=== PATIENT | male | born 1970 | race Caucasian/White ===

== ENCOUNTER 2025-04-07 23:00 | Emergency (ER) | payer MEDICAID, SELFPAY ==
[2025-04-07 23:10] VITALS: BP 113/81; PULSE 90; RESP 18; TEMP 36.5; O2SAT 100
--- NOTE | 2025-04-08 00:07 | ED.GENADUL_ITS ---
Discharge Plan Disposition Patient Disposition: Home Condition: Good Discharge Details Clinical Impression: PTSD (post-traumatic stress disorder) Primary Care Provider: Juanito Pope ED Provider: Shana Sotomayor Home Meds and New Rx's Prescriptions: Continued donepezil [Aricept] 10 mg tablet 10 mg PO DAILY Qty: 90 3RF memantine 10 mg tablet 10 mg PO QPM Qty: 90 3RF aripiprazole [Abilify] 20 mg tablet 20 mg PO DAILY Qty: 90 3RF dextroamphetamine-amphetamine [Adderall] 30 mg tablet 30 mg PO BID MDD 60mg Qty: 56 0RF Discharge Instructions Instructions: Post-traumatic Stress Disorder (DC) Additional Instructions: Follow your safety plan. [facility] sent referrals; please make sure to establish outpatient care. Do not hesitate to return to the emergency department at any point if you feel unsafe, like you may harm yourself or someone else, if you are hallucinating, if your symptoms worsen, or if you have any other concerns. We are always here. HPI General Mode of arrival: ambulatory . Date/Time Provider Initiated Documentation: 04/07/25 23:21 . Limitations to Documentation: no limitations . Information obtained by: patient . HPI Narrative: 54yo M with hx PTSD, ADHD, early onset dementia, presenting for w orsening PTSD symptoms. Recently moved here and took about two months to establish care with a PCP; has been out of his medications in that period of time. 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 Feels like his PTSD has been worsening over the past several months. He has been nervous, mildly agitated, frequently keeping an eye on people around him with concern that they may have a gun or another weapon or might be wanting to hurt him. Recognizes that this is probably not the case, but also wonders if the people around him don't recognize the danger from others because 'they don't know what to look out for'. Denies any intent or plan to harm anyone else, does not have access to firearms. Does not have any outpatient mental health services set up here yet and would like to, is 'tired of feeling like this all time'. Has had psychiatric admissions for PTSD in the past however 'things were much worse then'. Does not feel like he needs inpa tient treatment now. Is otherwise in his usual state of health with no physical complaints. Related Data Home Medications ?Medication ?Instructions ?Recorded ?Confirmed aripiprazole 20 mg tablet (Abilify) 20 mg PO DAILY #90 tabs 04/06/25 04/07/25 dextroamphetamine-amphetamine 30 30 mg PO BID #56 tabs 04/06/25 04/07/25 mg tablet (Adderall) donepezil 10 mg tablet (Aricept) 10 mg PO DAILY #90 ta bs 04/06/25 04/07/25 memantine 10 mg tablet 10 mg PO QPM #90 tabs 04/07/25 Previous Rx's ?Medication ?Instructions ?Recorded aripiprazole 20 mg tablet (Abilify) 20 mg PO DAILY #90 tabs 04/06/25 dextroamphetamine-amphetamine 30 30 mg PO BID #56 tabs 04/06/25 mg tablet (Adderall) donepezil 10 mg tablet (Aricept) 10 mg PO DAILY #90 ta bs 04/06/25 memantine 10 mg tablet 10 mg PO QPM #90 tabs Allergies Allergy/AdvReac Type Severity Reaction Status Date / Time No Known Allergies Allergy Verified 04/07/25 23:09 General Stated Complaint: PsychEval UMM: 2 Review of Systems Narrative: see HPI Exam Narrative Exam Narrative: General: Alert, well appearing, well nourished, in no acute distress. Head: Normocephalic, atraumatic Neck: Trachea midline, ?Neck supple. Cardiac: ?RRR Resp: No respiratory distress. Speaking in full sentences. Abd: ?Non-distended Extremities: ?No deformities.? No peripheral edema. Neurologic: GCS 15. ? Moves all extremities freely against gravity Psych: Nervous, cooperative.? Well groomed.? Mood antsy, affect congruent.? Speech with normal volume, rate, rythym and tone. Linear and goal directed.?Mild paranoia, good insight and judgement. Denies SI/HI/AH/VH. ? Does not appear to be responding to internal stimuli. Course Vital Signs Vital signs: Vital Signs Pulse 90 04/07/25 23:10 Respiratory Rate 18 04/07/25 23:10 Blood Pressure 113/81 04/07/25 23:10 Pulse Oximetry 100 04/07/25 23:10 Pulse 90 04/07/25 23:10 Respiratory Rate 18 04/07/25 23:10 Blood Pressure 113/81 04/07/25 23:10 Pulse Oximetry 100 04/07/25 23:10 Pain Level 0 04/07/25 23:10 Medical Decision Making 54yo M with hx PTSD, ADHD, early onset dementia, presenting for worsening PTSD symptoms. Has been experiencing some paranoia and anxiety. Recently moved the area, only able to restart his usual medications yesterday, does not have outpatient mental health services set up and is hoping we can help with this. Will give low dose PO ativan for anxiety here in the ED (patient declines outpatient prescription for this; has been on benzodiazapenes in the past and does not want to take them regularly which is very reasonable). Vital signs reassuring on arrival. Medically cleared/SMART form filled out. No SI/HI/AH/VH, demonstrates good insight and judgment into his condition. No indication for involuntary treatment. [facility] evaluated patient; safety planned home with outpatient referrals sent. Patient feels comfortable with this plan. Discharged home; discharge instructions and return precautions were reviewed with patient who verbalized understanding. All questions were answered and he is in full agreement with the plan. Quality:SDOH Health Related Social Needs: Health related social needs risk of homeless material hardship house/econ circumstance education PFSH All Active Problems (Updated 04/08/25 @ 01:21 by Shana Sotomayor MD) ADHD (Acute) PTSD (post-traumatic stress disorder) (Acute) Early onset Alzheimer dementia (Acute) Surgical History (Updated 04/06/25 @ 09:08 by Juanito Pope NP) History of repair of ACL Family History (Updated 03/30/25 @ 10:06 by Ashwini Farias) Mother No problems noted. Father No problems noted. Social History (Updated 03/30/25 @ 10:05 by Ashwini Farias) Smoking/Tobacco Use Status: Never Smoking risk assessment performed?: Yes Alcohol Intake: never Substance use type: does not use Adopted: No Household members: none Housing: house Communication Needs: None Education Level: high school Do you need help understanding health information?: Rarely Sexually active: No Do you think of yourself as: straight/heterosexual Current gender identity: male What is your relationship status?: How often do you talk on the phone with friends or family?: never How often do you get together with friends or relatives?: decline to answer How often do you attend rastafari or roman catholic services?: decline to answer Do you belong to any clubs or organized social groups?: decline to answer Panel score (0-1 are the most socially isolated patients): 0 Duration: 45-60 minutes/day Nicolasa/Evangelical: Non methodist Agree to transfusion: Yes Seatbelt use: always Helmet use: Yes Drive intox or ride w/intox semi driver: No Working smoke detector in home: Yes Carbon monox detector in home: Yes Do you feel safe at home: Yes Victim of physical abuse: No Victim of emotional abuse: No Victim of sexual abuse: No
[2025-04-08] MEDS: LORazepam 1 MG TAB PO (00:20)
--- NOTE | 2025-04-08 01:25 | PDOC.MHCN ---
Date of service: 04/08/25 Time of Service: 12:30 PHQ-9 Over the last 2 weeks, how often have you been bothered by any of the following problems? 1. Little interest or pleasure in doing things: not at all 2. Feeling down, depressed, or hopeless: several days 3. Trouble falling or staying asleep, or sleeping too much: not at all 4. Feeling tired or having little energy: not at all 5. Poor appetite or overeating: more than half the days 6. Feeling bad about yourself - or that you are a failure or have let yourself and your family down: nearly every day 7. Trouble concentrating on things, such as reading the newspaper or watching television: more than half the days 8. Moving or speaking so slowly that other people could have noticed? - Or the opposite - being so fidgety or restless that you have been moving around a lot more than usual: several days 9. Thoughts that you would be better off or of hurting yourself in some way: not at all Total score: 9 If you checked off any problems, how difficult have these problems made it for you to do your work, take care of things at home, or get along with other people?: not difficult at all PHQ-9 Results: Negative Source: Developed by Drs. Casey Wilkinson, Kusum Delaney, Johnathan Santa and colleagues, with an educational palomo from [employer]. Suicide Severity Rate CSSRS Have you wished you were or wished you could go to sleep and not wake up?: No Have you actually had any thoughts of killing yourself?: No CSSRS2 Have you been thinking about how you might do this?: No Have you had these thoughts and had some intention of acting on them?: No Have you started to work out or worked out the details of how to kill yourself? Do you intend to carry out this plan?: No CSSRS3 Have you ever done anything, started to do anything or prepared to do anything to end your life?: No CSSRS4 Was this within the past three months?: No Screening Score Total Score: 0 Screening: Negative Mental Health Emergency Note Release [facility] release signed:: No Reason for Visit PTSD Symptoms In the last 2 weeks has the pt presented for ES prior to today?: Unknown Client Information Well Housed: Yes Non Suicidal Self Injury Current: No History: No Safety Risk/Harm to Self or Others Current Ideation to Harm Self or Others: No Risk: Does risk to harm exist?: No Risk: N/A Duty to warn indicated: No Asssessment/Mental Status Appearance: Unremarkable Attitude: Cooperative Behavior: Unremarkable Speech: Normal Affect: Normal Mood: Stressed, Depressed and Anxious Thought process: Unremarkable Hallucinations: No and No evidence Delusions: No and No evidence Attention: Unremarkable Perception: Not impaired Orientation: Fully orientated Memory: Intact Insight: Poor Judgement: Poor Neurovegetative Symptoms Sleep: Decrease Appetitie: Increase Interests: No change Energy: No change Libido: Not applicable Substance Use: Do you use nicotine?: No Have you used substances in the last 7 days?: No Additional Issues: Assaultive/Threatening Behavior: No Medical Concerns: No Client engaged in active self harm w/weapon: No Threatening to run away: No Child reported abuse/neglect: No Voluntarily presenting for services: Yes Domestic violence is a concern: No Extreme Psychosis or extreme behavior is present: No Impression The client is a 54-year-old single male who presented with symptoms consistent with PTSD, specifically linked to combat. He carries diagnoses of PTSD, Early Onset Alzheimer's, and ADHD. The client is currently connected with a primary care physician, Juanito with [facility], and a therapist, Dr. Gamino. However, he expressed a desire for [facility] referrals for therapy, psychiatry, and potentially case management. During the session, the client denied any suicidal ideation (SI), homicidal ideation (HI), or non-suicidal self-injury (NSSI), stating there is no plan or intent with a distress level rated at 0 out of 10, and he has no significant previous history in this regard. The client does not engage in substance use and is compliant with his prescribed medications, which include Aricept, Namenda, Abilify, Adderall, and Aripiprazole. Notably, he last received inpatient mental health treatment in 2022 at [facility] in [place], [place], where he was under care for one year. He reported a substantial history of inpatient mental health treatment, totaling around 100 admissions since 1998. The client identifies as a retired, disabled and reports the absence of a natural support system, expressing interest in finding a private caregiver. A safety plan has been established so that the client can be discharged home. He has recevied information about [facility]. OP referrals through [facility] have been made. Resources Reosurces reviewed and given:: 988 and [facility] Plan/Disposition Recommended Disposition: [facility] Services, Therapy, Med management, Community resources and Other. Plan: Safety planned home. Person reported agreement to plan: Yes Reports/communication Outcome discussed with: ED/Personnel
[2025-04-08 01:31] VITALS: BP 115/90; PULSE 89; RESP 19; TEMP 36.6; O2SAT 98
== END 2025-04-08 01:47 | disposition home or self-care (01) ==
PROVIDERS: Emergency Provider Student in an Organized Health Care Education/Training Program; PCP Nurse Practitioner Family
DX: F43.10 Post-traumatic stress disorder, unspecified (principal); G30.0 Alzheimer's disease with early onset; F02.80 Dementia in other diseases classified elsewhere, unspecified severity, without behavioral disturbance, psychotic disturbance, mood disturbance, and anxiety; Z53.29 Procedure and treatment not carried out because of patient's decision for other reasons
CPT/HCPCS: 99283

== ENCOUNTER 2025-04-08 22:22 | Emergency (ER) | payer MEDICAID, SELFPAY ==
[2025-04-08 22:23] VITALS: BP 154/97; PULSE 117; RESP 20; TEMP 37; O2SAT 97
[2025-04-08 22:31] VITALS: RESP 20
[2025-04-08] MEDS: hydrOXYzine HCL 25 MG TAB PO (22:34)
--- NOTE | 2025-04-08 23:42 | W.ED.GENAD ---
Discharge Plan Discharge Details Chief Complaint: Anxiety Primary Care Provider: Juanito Pope ED Provider: Shana Sotomayor Home Meds and New Rx's Prescriptions: No Action donepezil [Aricept] 10 mg tablet 10 mg PO DAILY Qty: 90 3RF memantine 10 mg tablet 10 mg PO QPM Qty: 90 3RF aripiprazole [Abilify] 20 mg tablet 20 mg PO DAILY Qty: 90 3RF dextroamphetamine-amphetamine [Adderall] 30 mg tablet 30 mg PO BID MDD 60mg Qty: 56 0RF HPI General Mode of arrival: ambulatory. Date/Time Provider Initiated Documentation: 04/08/25 22:24. Limitations to Documentation: no limitations. Information obtained by: patient. HPI Narrative: 54yo M with hx PTSD, ADHD, early onset dementia, seen in this ED yesterday for worsening PTSD symptoms presenting again this evening for the same. See yesterday's note for details, in brief he recently moved here and there was a delay in establishing PCP care and he was out of his medications for two months just starting again within the past few days, and has not yet established care with outpatient mental health resources. Was evaluated by [facility] yesterday and safety-planned home with referrals sent. Presents today because he began to feel more anxious and 'amped up' this evening when trying to get to sleep. Denies SI/HI/AH/VH. Does have frequent thoughts about how the people around him may have weapons on them and want to hurt him though he recognizes that he 'might not be right'. Denies any intent or plan to harm anyone else, does not have access to firearms. Is otherwise in his usual state of health with no physical complaints. Related Data Home Medications ?Medication ?Instructions ?Recorded ?Confirmed aripiprazole 20 mg tablet (Abilify) 20 mg PO DAILY #90 tabs 04/06/25 04/08/25 dextroamphetamine-amphetamine 30 30 mg PO BID #56 tabs 04/06/25 04/08/25 mg tablet (Adderall) donepezil 10 mg tablet (Aricept) 10 mg PO DAILY #90 tabs 04/06/25 04/08/25 memantine 10 mg tablet 10 mg PO QPM #90 tabs 04/06/25 04/08/25 Previous Rx's ?Medication ?Instructions ?Recorded aripiprazole 20 mg tablet (Abilify) 20 mg PO DAILY #90 tabs 04/06/25 dextroamphetamine-amphetamine 30 30 mg PO BID #56 tabs 04/06/25 mg tablet (Adderall) donepezil 10 mg tablet (Aricept) 10 mg PO DAILY #90 tabs 04/06/25 memantine 10 mg tablet 10 mg PO QPM #90 tabs 04/06/25 Allergies Allergy/AdvReac Type Severity Reaction Status Date / Time No Known Allergies Allergy Verified 04/08/25 22:29 General Stated Complaint: Anxiety UMM: 4 Review of Systems Narrative: see HPI Exam Narrative Exam Narrative: General: Alert, well appearing, well nourished, in no acute distress. Head: Normocephalic, atraumatic Neck: Trachea midline, ?Neck supple. Cardiac: ?RRR Resp: No respiratory distress. Speaking in full sentences. Abd: ?Non-distended Extremities: ?No deformities.? No peripheral edema. Neurologic: GCS 15. ? Moves all extremities freely against gravity Psych: Calm, cooperative.? Well groomed.? Mood not great, affect congruent.? Speech with normal volume, rate, rythym and tone. Linear and goal directed.?Mild paranoia, good insight and judgment. Denies SI/HI/AH/VH. ? Does not appear to be responding to internal stimuli. Course Vital Signs Vital signs: Vital Signs Temperature 37.0 C 04/08/25 22:23 Pulse 117 H 04/08/25 22:23 Respiratory Rate 20 04/08/25 22:23 Blood Pressure 154/97 H 04/08/25 22:23 Pulse Oximetry 97 04/08/25 22:23 Temperature 37.0 C 04/08/25 22:23 Temperature Source Temporal Artery Scan 04/08/25 22:23 Pulse 117 H 04/08/25 22:23 Respiratory Rate 20 04/08/25 22:31 Respiratory Effort Normal, Non-Labored 04/08/25 22:31 Respiratory Depth Normal 04/08/25 22:31 Respiratory Pattern Normal 04/08/25 22:31 Blood Pressure 154/97 H 04/08/25 22:23 Blood Pressure Position Sitting 04/08/25 22:23 Pulse Oximetry 97 04/08/25 22:23 Oxygen Delivery Method Room Air 04/08/25 22:23 Oxygen Flow Rate 0 04/08/25 22:23 Pain Level 0 04/08/25 22:23 Medical Decision Making 54yo M with hx PTSD, ADHD, early onset dementia, seen in this ED yesterday for worsening PTSD symptoms presenting again this evening for the same. Presents today because he began to feel more anxious and 'amped up' this evening when trying to get to sleep. Denies SI/HI/AH/VH. Slightly tachycardiac on arrival, vital signs reassuring. Medically cleared/SMART tool filled out. Some paranoia, good insight and judgment and no access to firearms. Offerred ativan for anxiety, pt would prefer hydroxyzine and so this was ordered. [facility] evaluated patient; recommended voluntary placement and patient is agreeable (would prefer care bed). Repeat vital signs reassuring. Placed on ED observation status and home meds ordered. Will be signed out to oncoming physican in the morning, plan as above. Quality:SDOH Health Related Social Needs: Health related social needs risk of homeless material hardship house/econ circumstance education PFSH All Active Problems (Updated 04/08/25 @ 01:21 by Shana Sotomayor MD) ADHD (Acute) PTSD (post-traumatic stress disorder) (Acute) Early onset Alzheimer dementia (Acute) Surgical History (Updated 04/06/25 @ 09:08 by Juanito Pope NP) History of repair of ACL Family History (Updated 03/30/25 @ 10:06 by Ashwini Farias) Mother No problems noted. Father No problems noted. Social History (Updated 03/30/25 @ 10:05 by Ashwini Farias) Smoking/Tobacco Use Status: Never Smoking risk assessment performed?: Yes Alcohol Intake: never Substance use type: does not use Adopted: No Household members: none Housing: other Communication Needs: None Education Level: high school Do you need help understanding health information?: Rarely Sexually active: No Do you think of yourself as: straight/heterosexual Current gender identity: male What is your relationship status?: How often do you talk on the phone with friends or family?: never How often do you get together with friends or relatives?: decline to answer How often do you attend adventist or jainism services?: decline to answer Do you belong to any clubs or organized social groups?: decline to answer Panel score (0-1 are the most socially isolated patients): 0 Duration: 45-60 minutes/day Nicolasa/Temple: Non church Agree to transfusion: Yes Seatbelt use: always Helmet use: Yes Drive intox or ride w/intox delivery driver/supervisor: No Working smoke detector in home: Yes Carbon monox detector in home: Yes Do you feel safe at home: Yes Do you feel safe in your relationship?: Yes Victim of physical abuse: No Victim of emotional abuse: No Victim of sexual abuse: No
--- NOTE | 2025-04-09 03:52 | W.EDPROG ---
Date of service: 04/09/25 Time of Service: 03:52 Medical Decision Making Patient subsequently requesting leave. States he just found out his uncle and needs to go be with family. Denies SI/HI/AH/VH, calm, acting appropriately, does not appear to be responding to internal stimuli. I recommended that he stay the night and await [facility] re-eval in the morning and referrals; he refused. He demonstrates decision making capacity and I have no indication that he is at imminent risk of harm to himself or others and so there is no indication for involuntary psychiatirac commitment. Left AMA. [facility] updated. Quality:SDOH Health Related Social Needs: Health related social needs risk of homeless material hardship house/econ circumstance education Discharge Plan Disposition Patient Disposition: Against Medical Advice Condition: Stable Discharge Details Clinical Impression: PTSD (post-traumatic stress disorder) Primary Care Provider: Juanito Pope ED Provider: Shana Sotomayor Home Meds and New Rx's Prescriptions: No Action donepezil [Aricept] 10 mg tablet 10 mg PO DAILY Qty: 90 3RF memantine 10 mg tablet 10 mg PO QPM Qty: 90 3RF aripiprazole [Abilify] 20 mg tablet 20 mg PO DAILY Qty: 90 3RF dextroamphetamine-amphetamine [Adderall] 30 mg tablet 30 mg PO BID MDD 60mg Qty: 56 0RF Discharge Instructions Instructions: Post-traumatic Stress Disorder (DC) Additional Instructions: We would like you to stay in the ED but you haven chosen to leave against medical advice. Please return to the emergency department if you change your mind, or if your condition worsens. Return to the emergency department if you develop new or worsening symptoms including thoughts of harming yourself or others, hallucinations, or if you feel unsafe. Continue to take all of your home medications. Call your primary care doctor in the morning to schedule an appointment to be seen as soon as possible to followup on your visit here, no later than 48 hours from now.
--- NOTE | 2025-04-09 07:19 | NUR.NOTE ---
Accessed chart to print face sheet to fax to [facility] per their request Nursing Note:
== END 2025-04-09 04:10 | disposition left against medical advice (07) ==
PROVIDERS: Emergency Provider Student in an Organized Health Care Education/Training Program; PCP Nurse Practitioner Family
DX: F41.9 Anxiety disorder, unspecified (principal); F43.10 Post-traumatic stress disorder, unspecified
CPT/HCPCS: 99284; 99285; 00123; G0378

== ENCOUNTER 2025-04-09 21:02 | Emergency (ER) | payer OTHER, MEDICAID, SELFPAY | END 2025-04-09 21:47 | disposition left against medical advice (07) | PROVIDERS: PCP Nurse Practitioner Family | DX: Z53.21 Procedure and treatment not carried out due to patient leaving prior to being seen by health care provider (principal) | CPT/HCPCS: 99024 ==

== ENCOUNTER 2025-04-10 18:07 | Emergency (ER) | payer MEDICAID, SELFPAY ==
[2025-04-10 18:32] VITALS: BP 118/77; PULSE 106; RESP 18; TEMP 36.8; O2SAT 95
--- NOTE | 2025-04-10 19:24 | ED.GENADUL_ITS ---
Discharge Plan Discharge Details Chief Complaint: PsychEval Clinical Impression: Paranoid Primary Care Provider: Juanito Pope ED Provider: Gorge Schuler Home Meds and New Rx's Prescriptions: No Action donepezil [Aricept] 10 mg tablet 10 mg PO DAILY Qty: 90 3RF memantine 10 mg tablet 10 mg PO QPM Qty: 90 3RF aripiprazole [Abilify] 20 mg tablet 20 mg PO DAILY Qty: 90 3RF dextroamphetamine-amphetamine [Adderall] 30 mg tablet 30 mg PO BID MDD 60mg Qty: 56 0RF hydroxyzine HCl .ROUTE HPI General Mode of arrival: ambulatory . Date/Time Provider Initiated Documentation: 04/10/25 18:24 . Limitations to Documentation: no limitations . Information obtained by: patient . History of Present Illness 54 year old M presents to the emergency department with the chief complaint of erratic behavior, Patient started experiencing this week(s) (1) and it has been intermittent. No relieving factors improve symptom(s), No exacerbating factors reported . Patient notes denies chest pain, fever/chills and shortness of breath. Patient did receive the following treatments prior to arrival, none Related Data Home Medications ?Medication ?Instructions ?Recorded ?Confirmed aripiprazole 20 mg tablet (Abilify) 20 mg PO DAILY #90 tabs 04/06/25 04/10/25 dextroamphetamine-amphetamine 30 30 mg PO BID #56 tabs 04/06/25 04/10/25 mg tablet (Adderall) donepezil 10 mg tablet (Aricept) 10 mg PO DAILY #90 ta bs 04/06/25 04/10/25 memantine 10 mg tablet 10 mg PO QPM #90 tabs 04/10/25 hydroxyzine HCl .ROUTE 04/10/25 Previous Rx's ?Medication ?Instructions ?Recorded aripiprazole 20 mg tablet (Abilify) 20 mg PO DAILY #90 tabs 04/06/25 dextroamphetamine-amphetamine 30 30 mg PO BID #56 tabs 04/06/25 mg tablet (Adderall) donepezil 10 mg tablet (Aricept) 10 mg PO DAILY #90 ta bs 04/06/25 memantine 10 mg tablet 10 mg PO QPM #90 tabs Allergies Allergy/AdvReac Type Severity Reaction Status Date / Time No Known Allergies Allergy Verified 04/10/25 18:36 General Stated Complaint: PsychEval UMM: 2 Review of Systems All systems reviewed & are unremarkable except as noted in HPI and below Constitutional Constitutional: Denies chills, Denies fever(s) and Denies weakness Cardiovascular Cardiovascular: Denies chest pain and Denies dyspnea Respiratory Respiratory: Denies cough and Denies dyspnea Gastrointestinal Gastrointestinal: Denies abdominal pain, Denies nausea and Denies vomiting Neurologic Neurologic: Denies weakness Psychiatric Psychiatric: Reports anxiety and Reports mood swings Exam Const General: no acute distress Orientation: alert HENMT Head: normal to inspection Ears: external ears normal General nose exam: external nose normal Mouth: moist mucous membranes Eyes General: appearance normal, both eyes and all related structures Neck Neck: normal visual inspection Resp Effort & Inspection: normal respiratory effort and able to speak in complete sentences Cardio Rate: regular rate Skin General skin exam: no rashes or lesions noted Neuro General: patient alert and patient oriented x3 Extrem General: normal to inspection Psych Speech and Movement: speech and movement normal Attitude: cooperative Course Vital Signs Vital signs: Vital Signs Temperature 36.8 C 04/10/25 18:32 Pulse 106 H 04/10/25 18:32 Respiratory Rate 18 04/10/25 18:32 Blood Pressure 118/77 04/10/25 18:32 Pulse Oximetry 95 04/10/25 18:32 Temperature 36.8 C 04/10/25 18:32 Pulse 106 H 04/10/25 18:32 Respiratory Rate 18 04/10/25 18:32 Blood Pressure 118/77 04/10/25 18:32 Blood Pressure Position Sitting 04/10/25 18:32 Pulse Oximetry 95 04/10/25 18:32 Oxygen Delivery Method Room Air 04/10/25 18:32 Oxygen Flow Rate 0 04/10/25 18:32 Pain Level 0 04/10/25 18:32 Medical Decision Making 54-year-old male with a history of ADHD and PTSD who recently moved to this area comes in with same today PD and a mental health warrant. Apparently is been acting erratic in the community or was written for him to have a mental health evaluation. Patient is currently calm and cooperative and denies any SI or HI. He says he has [facility] of [facility] care [facility]. Denies any drug or alcohol use. He has a normal gait, moving all extremities well with good strength. He has been seen here few times already in the ER. Will have mental health evaluate him. More information gathered from crisis screener. Apparently he had a PE submitted earlier by the crisis screener. He is left this ER after stating he was to stay voluntarily and would then leave a few hours later. He apparently has been acting paranoid in the community and thinks that everyone in the community is carrying a gun and is a threat to him. He apparently made statements to crisis screener stating he will do what ever he needs to to protect himself. Given this new information I have also fill out the paperwork. Patient pending second CERT Differential Diagnosis Differential Diagnosis: PTSD, ADHD Quality:SDOH Health Related Social Needs: Health related social needs risk of homeless material hardship house/econ circumstance education PFSH All Active Problems (Updated 04/10/25 @ 22:15 by Gorge Schuler MD) Paranoid (Acute) ADHD (Acute) PTSD (post-traumatic stress disorder) (Acute) Early onset Alzheimer dementia (Acute) Surgical History (Updated 04/06/25 @ 09:08 by Juanito Pope NP) History of repair of ACL Family History (Updated 03/30/25 @ 10:06 by Ashwini Farias) Mother No problems noted. Father No problems noted. Social History (Updated 03/30/25 @ 10:05 by Ashwini Farias) Smoking/Tobacco Use Status: Never Smoking risk assessment performed?: Yes Alcohol Intake: never Substance use type: does not use Adopted: No Household members: none Housing: other Communication Needs: None Education Level: high school Do you need help understanding health information?: Rarely Sexually active: No Do you think of yourself as: straight/heterosexual Current gender identity: male What is your relationship status?: How often do you talk on the phone with friends or family?: never How often do you get together with friends or relatives?: decline to answer How often do you attend islam or evangelical services?: decline to answer Do you belong to any clubs or organized social groups?: decline to answer Panel score (0-1 are the most socially isolated patients): 0 Duration: 45-60 minutes/day Nicolasa/Protestant: Non samaritan Agree to transfusion: Yes Seatbelt use: always Helmet use: Yes Drive intox or ride w/intox otr refrigerated cdl truck driver: No Working smoke detector in home: Yes Carbon monox detector in home: Yes Do you feel safe at home: Yes Do you feel safe in your relationship?: Yes Victim of physical abuse: No Victim of emotional abuse: No Victim of sexual abuse: No
[2025-04-10 19:50] LABS: Abs Immature Grans 0.03 10^3/uL (0.0-0.06); HCT 49.5 % (40.0-50.0); HGB 16.6 g/dL (13.5-17.5); Immature Grans % 0.3 %; MCH 27.9 pg (27.0-33.0); MCHC 33.5 % (32.0-36.0); MCV 83 fL (80-95); MPV 10.6 fL (8.0-11.0); Platelet Count 363 10^3/uL (130-400); RBC 5.95 10^6/uL (4.36-5.78); RDW 13.2 % (11.8-14.1); RDW-SD 39.8 fL; WBC 10.89 10^3/uL (4.4-10.8)
[2025-04-10 20:22] LABS: ALT 28 U/L (16-63); AST 28 U/L (15-37); Albumin 4.7 g/dL (3.4-5.0); Alkaline Phosphatase 117 U/L (46-116); Anion Gap 9.5 mmol/L (3-11); BUN 24 mg/dL (7-18); Bilirubin, Total 0.7 mg/dL (0.2-1.0); CO2 28.5 mmol/L (21.0-32.0); Calcium 9.8 mg/dL (8.5-10.1); Chloride 102 mmol/L (98-107); Estimated GFR 90.56 (mL/min/1.73m2); Glucose 99 mg/dL (74-106); Potassium 4.0 mmol/L (3.5-5.1); Sodium 140 mmol/L (136-145); TSH (W/Ref FT4) 1.04 uIU/mL (0.36-3.74); Total Protein 8.7 g/dL (6.4-8.2)
[2025-04-10] MEDS: Memantine 5 MG TAB 10 MG PO (23:09)
[2025-04-11] MEDS: ARIPiprazole 5 MG TAB 20 MG PO (08:22)
[2025-04-11] MEDS: Donepezil 5 MG TAB 10 MG PO (08:22)
--- NOTE | 2025-04-11 08:42 | ED.PSYCHBOAR ---
Date of service: 04/11/25 Time of Service: 08:42 Psychiatric Border Handoff Update Brief Story: Patient currently being held involuntarily. Second CERT is pending. Patient has been seen multiple times this week in the emergency department. Currently pending placement. Status: EE Able to leave: no, this patient is an EE Behavioral Concerns: Patient is on an involuntary hold. He is fairly paranoid. Patient this morning became highly agitated because some man doctor told him that he was being discharged and the next thing he knew he woke up this morning and he still was not discharged. Patient has been made aware that he is currently on an involuntary hold, but has become fairly hostile and threatening towards staff. Code Status ordered: Yes Diet ordered: Yes Future to do Items: There is slightly Discharge Plan Discharge Details Chief Complaint: PsychEval Clinical Impression: Paranoid Primary Care Provider: Juanito Pope ED Provider: Loretta Martino Home Meds and New Rx's Prescriptions: No Action donepezil [Aricept] 10 mg tablet 10 mg PO DAILY Qty: 90 3RF memantine 10 mg tablet 10 mg PO QPM Qty: 90 3RF aripiprazole [Abilify] 20 mg tablet 20 mg PO DAILY Qty: 90 3RF dextroamphetamine-amphetamine [Adderall] 30 mg tablet 30 mg PO BID MDD 60mg Qty: 56 0RF hydroxyzine HCl .ROUTE
--- NOTE | 2025-04-11 08:45 | RES.FACE_ITS ---
Date of service: 04/11/25 Time of Service: 08:45 Restraint Face to Face Time of Face to Face Face to Face: Patient's Immediate Situation Requiring Restraints/Seclusion: Harm to Staff & Others Patient's Medical & Behavioral Condition: Patient became very agitated, hostile, threatening towards staff. Kept attempting to leave. Patient was reminded he is on involuntary status. IM medication for chemical restraint of ordered, but patient was able to be de- escalated verbally. Will continue to monitor closely
--- NOTE | 2025-04-11 09:31 | PDOC.MHCN_ITS ---
Date of service: 04/08/25 Time of Service: 23:30 PHQ-9 Over the last 2 weeks, how often have you been bothered by any of the following problems? 1. Little interest or pleasure in doing things: not at all 2. Feeling down, depressed, or hopeless: not at all 3. Trouble falling or staying asleep, or sleeping too much: not at all 4. Feeling tired or having little energy: not at all 5. Poor appetite or overeating: not at all 6. Feeling bad about yourself - or that you are a failure or have let yourself and your family down: not at all 7. Trouble concentrating on things, such as reading the newspaper or watching television: not at all 8. Moving or speaking so slowly that other people could have noticed? - Or the opposite - being so fidgety or restless that you have been moving around a lot more than usual: nearly every day 9. Thoughts that you would be better off or of hurting yourself in some way: not at all Total score: 3 If you checked off any problems, how difficult have these problems made it for you to do your work, take care of things at home, or get along with other people?: not difficult at all PHQ-9 Results: Negative Source: Developed by Drs. Casey Wilkinson, Kusum Delaney, Johnathan Santa and colleagues, with an educational palomo from [employer]. Suicide Severity Rate CSSRS Have you wished you were or wished you could go to sleep and not wake up?: No Have you actually had any thoughts of killing yourself?: No CSSRS3 Have you ever done anything, started to do anything or prepared to do anything to end your life?: No Screening Score Total Score: 0 Mental Health Emergency Note Release [facility] release signed:: No Reason for Visit Feeling unsafe in hotel, paranoia In the last 2 weeks has the pt presented for ES prior to today?: Unknown Client Information Client is: New Well Housed: Yes Non Suicidal Self Injury Current: No History: No Safety Risk/Harm to Self or Others Current Ideation to Harm Self or Others: Yes to others. Intent: No Plan: no, does not have a plan. Risk: Does risk to harm exist?: yes. Risk: Moderate Risk Duty to warn indicated: No Asssessment/Mental Status Appearance: Unremarkable Attitude: Guarded Behavior: Agitated and Other Speech: Pressured Affect: Constricted and Cogruent with mood Mood: Stressed, Anxious and Other Thought process: Racing, Flight of ideas and Other Hallucinations: yes, Visual and Auditory and No evidence Delusions: yes, Persectory/Paranoid and Bizarre and No evidence Attention: Other Perception: Not impaired Orientation: Fully orientated Memory: Intact Insight: Fair Judgement: Fair Neurovegetative Symptoms Sleep: Decrease Appetitie: No change Interests: No change Energy: Increase Libido: No change Substance Use: Do you use nicotine?: No Have you used substances in the last 7 days?: No Additional Issues: Assaultive/Threatening Behavior: No Medical Concerns: Yes Client engaged in active self harm w/weapon: No Threatening to run away: Yes Child reported abuse/neglect: No Voluntarily presenting for services: Yes Domestic violence is a concern: No Extreme Psychosis or extreme behavior is present: Yes Impression Client is exhibiting paranoia and expressing delusional thoughts. Client does not directly participate in screening and crisis assessment, but client was seen earlier in the day. This impression is current state compared to his presentation eight hours prior, and changes are clear. Client agrees to remain in the hospital and seek voluntary inpatient mental health treatment. Resources Reosurces reviewed and given:: 988, NK and Other Plan/Disposition Recommended Disposition: Hospitalization No. Person reported agreement to plan: Yes Reports/communication Outcome discussed with: ED/Personnel
--- NOTE | 2025-04-11 10:40 | ED.PROG1_ITS ---
Date of service: 04/11/25 Time of Service: 12:28 Psychiatric Border Handoff Update Brief Story: Patient was being held on involuntary hold initially this morning there was some agitation displayed by the patient secondary to his frustration with still being here. He was able to be verbally does de-escalated did not did not require chemical restraint. The second certification screening was done by the State. They do not feel that the patient meets EE criteria. On reevaluation done by myself, care management and [facility], the patient is not suicidal, homicidal. He is calm and cooperative, linear thought process. At this time he no longer wants to stay in this emergency department. It is [facility] that he [facility] as [facility] his provider of choice. A safety plan was written by mental health services. The patient is discharged at this time. Discharge Plan Disposition Patient Disposition: Home Condition: Fair Discharge Details Clinical Impression: Paranoid Primary Care Provider: Juanito Pope ED Provider: Loretta Martino Home Meds and New Rx's Prescriptions: No Action donepezil [Aricept] 10 mg tablet 10 mg PO DAILY Qty: 90 3RF memantine 10 mg tablet 10 mg PO QPM Qty: 90 3RF aripiprazole [Abilify] 20 mg tablet 20 mg PO DAILY Qty: 90 3RF dextroamphetamine-amphetamine [Adderall] 30 mg tablet 30 mg PO BID MDD 60mg Qty: 56 0RF hydroxyzine HCl .ROUTE Discharge Instructions Additional Instructions: You are at evaluated on an involuntary psychiatric hold for your behavior. At this time there is no longer any reason to keep you in the emergency department involuntarily. You deny any suicidal ideation, homicidal ideation, you are calm and cooperative. We do recommend that you continue follow-up with mental health services or with the [facility] as is your [facility]. Please continue your medications, no changes were made to your medications during this visit. Return with any concerns or other symptoms you may have.
--- NOTE | 2025-04-11 13:27 | PDOC.CMPRO ---
Date of service: 04/11/25 Time of Service: 13:27 Care Management Progress Note Progress Note Text Progress Note Text: CM huddled with [facility] and [facility] staff regarding Robel's plan of care. CM responded to the ED when a code sammy (disruptive person) was called for Robel, as he had become agitated after being told that he is here involuntarily, therefore he could not leave. [facility] was called for re assessment. Robel reportedly asked for assistance to go to the [facility], where he would like to have treatment. He stated that he is a ([place]), who was living in [facility] until about four weeks ago. He did not have medications with him, therefore was without them for about a month. He now has been restarted on his medications. At the time of his agitation, he was asked if he would take PRN medications to help him calm down, which he declined. He was able to be de escalated verbally, and engaged with ROBIN Adame, who arrived to re assess him. He was moved to Zone B when a bed became available, and had his second certification at 11am. Per report, he did not present with SI/HI, paranoia, delusions, or linda, therefore the psychiatrist did not uphold the EE. He was discharged back to the community, and informed staff that he plans to seek care at the [facility]. SANDY will continue to follow. Social Determinants of Health Screening Will the Patient Participate in the Screening?: Declined to provide Do you worry about having a steady place to live?: choose not to answer In the past 12 months, have you had to go without electric, gas, oil or water in your home?: choose not to answer Has lack of transportation kept you from medical appointments or from doing things needed for daily living?: choose not to answer Has anyone in your life made you feel unsafe or unsupported?: choose not to answer Do you want help finding or keeping work or a job?: I do not need or want help If for any reason you need help with day-to-day activities such as bathing, preparing meals, shopping, managing finances, etc., do you get the help you need?: I don?t need any help Do you speak a language other than Turkish at home?: No Health Related Social Needs Health related social needs: material hardship(utilities) (Z59.12) Health related social needs details: patient is resident at [facility]
--- NOTE | 2025-04-11 13:49 | PDOC.MHPN2 ---
Date of service: 04/11/25 Time of Service: 13:50 Mental Health Emergency Note Release [facility] release signed:: Yes Reason for Visit The client is known to [facility]' ES team and AO team. This is this clinician's first time meeting the client. Per documentation completed by ANGELA Roblero: Last received inpatient MH treatment in 2022 at [facility] in [facility]. Received care for 1 year. Reports having been treated by inpatient MH at last 100 times, beginning in 1998. He was last seen on 04.06 per chart review. The client presents today in the ED waiting for a second certification due to being brought in on a MH Warrant. In the last 2 weeks has the pt presented for ES prior to today?: Yes, presented at [facility] ED Client Information Client is: New Well Housed: No,status: Homeless Unstable housing Non Suicidal Self Injury Current: No History: No Safety Risk/Harm to Self or Others Current Ideation to Harm Self or Others: No Risk: Does risk to harm exist?: No Risk: Low Risk Asssessment/Mental Status Appearance: Disheveled Attitude: Cooperative, Demanding and Hostile Behavior: Agitated Speech: Normal and Loud Affect: Cogruent with mood Mood: Stressed and Angry Thought process: Goal directed Hallucinations: No Delusions: No Attention: Unremarkable Perception: Not impaired Orientation: Fully orientated Memory: Intact Insight: Fair Judgement: Fair Neurovegetative Symptoms Sleep: Decrease Appetitie: No change Interests: No change Energy: No change Libido: Not applicable Substance Use: Do you use nicotine?: No Have you used substances in the last 7 days?: No Additional Issues: Assaultive/Threatening Behavior: Yes Medical Concerns: No Client engaged in active self harm w/weapon: No Threatening to run away: No Child reported abuse/neglect: No Voluntarily presenting for services: No Domestic violence is a concern: No Extreme Psychosis or extreme behavior is present: Yes Impression The client is a 54-year-old, single, male who has been residing at [facility] while his reported apartment is renovated in [facility]. He is currently retired per his report. He is diagnosed with PTSD, Early onset Alzheimer's and ADHD per his report. He reported he moved to [place] [address] [facility] on the [facility]. The cleint uses He/Him pronouns. All underrepresented categories were honored during this assessment. The cleint presented lying in bed dressed in hospital mandated scrubs. He has a bald head and days worth of facial hair growth. Upon arrival there was a code rodriguez in progress however, the client was able to regulate his mood and agreeable to meeting with this clinician. The client reported that he has served all over to include but not limited to [place], [place], [place] and [place]. He reported that for days he has been trying to get to the [facility] to get set up with services and had not been able to secure transportation. The client denied SI, HI and NSSI. He reported he slept hard last night due to exhaustion from the days of flashbacks he has been experiencing. He denied auditory or visual hallucinations. This clinician spoke to him about the possibility of getting a ride to the [facility] if we could agree on this. He was open to this as a possibility. In speaking with the provider about this plan she was nervous about this due to his recent behaviors and worried for this clinicians safety. We agreed to wait until his second cert happened. Later in the morning when he was brought back to Zone B he again became agitated and was threatening to hurt people that we had no right to hold him. This clinician sat outside of the client's room while he was on his second cert and following that the psychiatrist did not believe he met criteria for inpatient involuntarily. Resources Reosurces reviewed and given:: 988 and Other Plan/Disposition Recommended Disposition: Community resources. Plan: It is important to note that this clinician coordinated services and plans with the [facility] team, [facility], and ES Director Abraham Mancia throughout the day. The client was safety planned home. He refused to participate in the [facility] safety plan however, did complete the [facility] one. He will follow up with his OP treatment team. If he can prove he has a DD214 [facility] will provide transportation to the [facility] as approved by ES Director Abraham Mancia. Person reported agreement to plan: Yes Reports/communication Outcome discussed with: ED/Personnel
== END 2025-04-11 12:44 | disposition home or self-care (01) ==
PROVIDERS: Emergency Medicine; Emergency Provider Emergency Medicine; PCP Nurse Practitioner Family
DX: F23 Brief psychotic disorder (principal); F43.10 Post-traumatic stress disorder, unspecified; Z59.87 Material hardship due to limited financial resources, not elsewhere classified
CPT/HCPCS: 99283 ×2; 00123; 80053; 96127; G0378; 80320; 84443; 85025